=== PATIENT | male | born 1935 | race Caucasian/White ===

== ENCOUNTER → 2017-01-05 | Day surgery (SDC) | payer MEDICARE, OTHER ==
[~2017-01-05] MED LIST: ASPI-482 PO; ATOR20TA PO; IV RINGERS,LACTATED 1000ML 1,000 ML IV SCH; LEVO25TA4 PO; LIDOCAINE 1% PF 2 ML VIAL. ONE; OMEP40CA5 PO; PROPOFOL 20 ML IV ONE; PROPOFOL 40 ML IV ONE
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
--- NOTE | 2017-01-05 10:51 | PDOC4 ---
GI OP Report - Dr. Rabago Date/Time DATE: 01/05/17 TIME: 10:49 Attending Physician Josias Rabago MD Referring Physician Indications Follow-up of Almendarez's esophagus Pre-Op See the Anesthesia note for documentation of the administered medications Procedures Upper GI endoscopy Findings - Almendarez's esophagus. Biopsied. - Tortuous esophagus. - Normal stomach. - Normal examined duodenum. Plan - Discharge patient to home. - Patient has a contact number available for emergencies. The signs and symptoms of potential delayed complications were discussed with the patient. Return to normal activities tomorrow. Written discharge instructions were provided to the patient. - Resume regular diet. - Continue present medications. - Await pathology results. - Repeat the upper endoscopy in 2 years for surveillance based on pathology results. - Return to my office in 2 weeks. JOSIAS RABAGO MD Jan 05, 2017 10:51
--- NOTE | 2017-01-05 10:56 | PDOC4 ---
GI OP Report - Dr. Rabago Date/Time DATE: 01/05/17 TIME: 10:54 Attending Physician Josias Rabago MD Referring Physician Indications Personal history of colonic polyps Pre-Op See the Anesthesia note for documentation of the administered medications Procedures Colonoscopy Findings - Diverticulosis in the sigmoid colon. - The examination was otherwise normal on direct and retroflexion views. - No specimens collected. Plan - Discharge patient to home. - Patient has a contact number available for emergencies. The signs and symptoms of potential delayed complications were discussed with the patient. Return to normal activities tomorrow. Written discharge instructions were provided to the patient. - Resume regular diet. - Continue present medications. - No repeat colonoscopy due to age. - Return to my office as needed. JOSIAS RABAGO MD Jan 05, 2017 10:56
[2017-01-05 11:13] VITALS: BP 112/67
--- NOTE | 2017-01-06 13:44 | PATHOLOGY ---
PATHOLOGY REPORT * * * * * * * * FINAL DIAGNOSIS: A. Esophageal biopsies, distal esophagus 38 cm: - Segments of glandular mucosa with focal attached squamous esophageal mucosa showing chronic inflammation and focal intestinal metaplasia with goblet cells, consistent with Almendarez's change. B. Esophageal biopsies, distal esophagus 35 cm: - Segments of glandular mucosa showing chronic inflammation and focal intestinal metaplasia with goblet cells, consistent with Almendarez's change. COMMENT: Sections of the esophageal biopsies at 38 cm and 35 cm appear similar and reveal segments of glandular mucosa showing moderate active chronic inflammation with focal intestinal metaplasia with goblet cells, consistent with Almendarez's change. There is no dysplasia or evidence of malignancy. (JPM:mgleatha; d/t: 01/06/17) REPORT ELECTRONICALLY SIGNED BY: Gabriel Goodson M.D. DATE/TIME: 01/06/2017 13:44 * * * * * * * * GROSS PATHOLOGY: A. Received in formalin labeled "Edi Kline, distal esophagus 38 cm," are three segments of nguyen soft tissue measuring 0.6 x 0.5 x 0.1 cm in aggregate dimensions and ranging from 0.3 to 0.5 cm in maximum dimension. The specimen is submitted entirely in cassette A1. B. Received in formalin labeled "Edi Kline, distal esophagus 35 cm," are four segments of nguyen soft tissue measuring 0.9 x 0.8 x 0.2 cm in aggregate dimensions and ranging from 0.3 to 0.4 cm in maximum dimension. The specimen is submitted entirely in cassette B1. (CAA; 01/05/2017) INITIAL CPT CODE(S): A; 07497 B; 66173 Professional services performed by [facility] at [address] [address] Technical services performed by [facility] at [address] [place] [address], [facility] [address] [address]. SPECIMEN(S) RECEIVED: A.Distal esophagus 38 cm B.Distal esophagus 35 cm CLINICAL HISTORY: Almendarez's/ history of polyps PATIENT: DEI KLINE /AGE: 1 1935 (Age: 81) PATIENT #: [id number] ALT CASE #: SPECIMEN COLLECTION DATE: 01/05/2017 SPECIMEN RECEIVED DATE: 01/05/2017 [facility] - [facility] [place] [address] - PHONE: [phone] * * * END OF REPORT * * *
== END | disposition home or self-care (01) ==
LOC: ENDOS 08:45
PROVIDERS: ATTEND Internal Medicine Gastroenterology
DX: K57.30 Diverticulosis of large intestine without perforation or abscess without bleeding (principal); K22.8 Other specified diseases of esophagus; J44.9 Chronic obstructive pulmonary disease, unspecified; I10 Essential (primary) hypertension; K21.9 Gastro-esophageal reflux disease without esophagitis; M19.042 Primary osteoarthritis, left hand; Z98.42 Cataract extraction status, left eye; Z98.41 Cataract extraction status, right eye
CPT/HCPCS: 43239; 45378; 88305; J2704